=== PATIENT | female | born 1950 | race Hispanic/Latino ===

== ENCOUNTER 2017-04-20 13:41 | Outpatient (CLI) | payer BC | END 2017-04-20 19:47 | disposition home or self-care (01) | LOC: MAMMO 13:41 | DX: Z12.31 Encounter for screening mammogram for malignant neoplasm of breast (principal) ==

== ENCOUNTER 2018-04-28 13:35 | Outpatient (CLI) | payer OTHER | END 2018-04-28 19:33 | disposition home or self-care (01) | LOC: MAMMO 13:35 | DX: Z12.31 Encounter for screening mammogram for malignant neoplasm of breast (principal) ==